=== PATIENT | male | born 1975 | race African-American/Black ===

== ENCOUNTER 2022-05-14 11:12 | Inpatient (IN) ==
[2022-05-14] MEDS ORDERED: FUROSEMIDE 40 MG/4 ML VIAL IV STA (11:40)
[2022-05-14 12:10] LABS: Basophils % 0.4 % (0.0-0.8); Eosinophils # 0.1 10*3/uL (0.0-0.87); Eosinophils % 1.3 % (0.00-10.9); Hematocrit 25.7 VOL% (42.0-52.0); Immature Granulocytes % 4.4 %; Immature Granulocytes Absolute 0.23 #; Lymphocytes # 1.3 10*3/uL (1.4-4.0); Lymphocytes % 24.6 % (21.2-54.2); Mean Corpuscular HGB Conc 31.1 GM/DL (32-36); Mean Corpuscular Volume 95.9 FL (87-102); Monocytes # 0.4 10*3/uL (0.11-0.8); Monocytes % 8.4 % (1.7-12.7); NRBC # 0.31 10*3/uL; Neutrophils % 60.9 % (38.7-73.9); Platelet Count 95 T/CUMM (130-400); Red Blood Count 2.68 MC/CUMM (3.8-5.5); Red Cell Distribution Width 19.8 % (9.3-17.3); White Blood Count 5.3 T/CUMM (4-12)
[2022-05-14 12:35] LABS: Hypochromia Slight; Platelet Estimate Decreased; Polychromasia Slight
[2022-05-14 12:36] LABS: Albumin 2.4 G/DL (3.4-5.0); Bilirubin,Total 0.8 MG/DL (0.20-1.00); Calcium 8.6 MG/DL (8.5-10.1); Osmolality,Calculated 283.1 MOS/KG (273-304); Potassium 3.7 MMOL/L (3.5-5.1); Total Protein 9.4 G/DL (6.4-8.2)
[2022-05-14] MEDS ORDERED: DILTIAZEM 25 MG/5 ML VIAL IV ONE (15:27)
[2022-05-14] MEDS ORDERED: DILTIAZEM 50 MG/10 ML VIAL IV STA (15:33)
[2022-05-14] MEDS ORDERED: DILTIAZEM 100 MG VIAL.ADD IV ONE ×2 (15:35→15:36)
[2022-05-14] MEDS: DILTIAZEM INJ 100 MG in SODIUM CHLORIDE 0.9% 100 ML IV SCH (15:40)
[2022-05-14] MEDS ORDERED: SODIUM CHLORIDE 0.9% 500 ML IV STA (16:23)
[2022-05-14] MEDS ORDERED: METOPROLOL TARTRATE 5 MG/5 ML VIAL IV STA (16:35)
[2022-05-14] MEDS ORDERED: DOCUSATE SODIUM 100 MG CAPSULE PO PRN (17:46)
[2022-05-14] MEDS ORDERED: ALBUTEROL/IPRATROPIUM 3 ML NEB RESP TX PRN (17:46)
[2022-05-14] MEDS ORDERED: ACETAMINOPHEN 325 MG TABLET PO PRN (17:46)
[2022-05-14] MEDS ORDERED: MORPHINE 2 MG/1 ML SYRINGE IV PRN (17:46)
[2022-05-14] MEDS ORDERED: ONDANSETRON 4 MG/2 ML VIAL IV PRN (17:46)
[2022-05-14] MEDS ORDERED: hydrALAZINE 20 MG/1 ML VIAL IV PRN (17:46)
[2022-05-14] MEDS ORDERED: MELATONIN 3 MG TABLET PO PRN (18:04)
[2022-05-14] MEDS ORDERED: SODIUM CHLORIDE 0.9% 1,000 ML IV PRN (19:16)
[2022-05-14 20:09] LABS: % Iron Saturation 44.3 % (18-50)
[2022-05-14 20:10] LABS: Thyroid Stimulating Hormone 3.23 uIU/ml (0.358-3.74)
[2022-05-14] MEDS: MONTELUKAST 10 MG TABLET PO SCH (21:27)
[2022-05-14] MEDS: ENOXAPARIN 40 MG/0.4 ML SYRINGE SUBCUT SCH (21:27)
[2022-05-15] MEDS ORDERED: METOPROLOL TARTRATE 5 MG/5 ML VIAL IV ONE ×2 (02:00→04:25)
[2022-05-15] MEDS ORDERED: POTASSIUM CHLORIDE RIDER 10 MEQ/100 ML PREMIX IV ONE (03:15)
[2022-05-15] MEDS ORDERED: POTASSIUM CHLORIDE 20 MEQ TABLET PO ONE (03:15)
[2022-05-15 05:29] LABS: Basophils % 0.5 % (0.0-0.8); Eosinophils % 0.7 % (0.00-10.9); Hematocrit 28.2 VOL% (42.0-52.0); Hemoglobin 8.5 GM/DL (14.0-18.0); Immature Granulocytes % 3.8 %; Immature Granulocytes Absolute 0.21 #; Lymphocytes # 1.5 10*3/uL (1.4-4.0); Lymphocytes % 27.3 % (21.2-54.2); Mean Corpuscular HGB Conc 30.1 GM/DL (32-36); Mean Corpuscular Volume 96.9 FL (87-102); Mean Platelet Volume 11.8 FL (9.6-12.0); Monocytes # 0.4 10*3/uL (0.11-0.8); Monocytes % 7.8 % (1.7-12.7); NRBC # 0.35 10*3/uL; Neutrophils % 59.9 % (38.7-73.9); Platelet Count 101 T/CUMM (130-400); Red Blood Count 2.91 MC/CUMM (3.8-5.5); White Blood Count 5.5 T/CUMM (4-12)
[2022-05-15 05:35] LABS: Amorphous Crystals,Urine Occasional /HPF (Few); Bilirubin,Urine Small mg/dL (Negative); Glucose,Urine (UA) Negative (Negative); Hyaline Casts,Urine 8 /LPF (0-3); Ketones,Urine Negative (Negative); Mucus,Urine Many /LPF (Occasional); Nitrite,Urine Negative (Negative); Protein,Urine 100 mg/dL (Negative); RBC,Urine 1 /HPF (0-4); Squamous Epithelial Cell,Urine Occasional /HPF (0-10); Urine Appearance Clear (Clear); Urine Color Yellow (Yellow); Urine Specific Gravity >= 1.030 (1.001-1.035); Urine pH 5.5 (4.5-8.0)
[2022-05-15 05:36] LABS: Blood, Urine Negative (Negative)
[2022-05-15 05:45] LABS: Calcium 8.4 MG/DL (8.5-10.1); Osmolality,Calculated 278.8 MOS/KG (273-304); Potassium 4.5 MMOL/L (3.5-5.1)
[2022-05-15 07:13] LABS: Barbiturates Screen,Urine Negative (Negative); Benzodiazepines Screen,Urine Negative (Negative); Cannabinoid Screen,Urine Negative (Negative); Opiate Screen,Urine Negative (Negative); Phencyclidine Screen,Urine Negative (Negative)
[2022-05-15] MEDS ORDERED: PANTOPRAZOLE 40 MG TABLET PO SCH (09:00)
[2022-05-15] MEDS ORDERED: METOPROLOL TARTRATE 50 MG TABLET PO SCH ×2 (09:00→21:00)
[2022-05-15] MEDS: DILTIAZEM CD 120 MG CAPSULE PO SCH ×2 (09:04→21:56)
[2022-05-15] MEDS: ASCORBIC ACID 500 MG TABLET PO SCH (09:04)
[2022-05-15] MEDS: FUROSEMIDE 40 MG/4 ML VIAL IV SCH (09:05)
[2022-05-15] MEDS: DILTIAZEM INJ 100 MG in SODIUM CHLORIDE 0.9% 100 ML IV SCH (17:04)
[2022-05-15] MEDS: ENOXAPARIN 40 MG/0.4 ML SYRINGE SUBCUT SCH (21:56)
[2022-05-15] MEDS: MONTELUKAST 10 MG TABLET PO SCH (21:59)
[2022-05-16] MEDS ORDERED: NOREPINEPHRINE 4 MG/4 ML VIAL IV ONE (01:44)
[2022-05-16] MEDS ORDERED: DEXTROSE 50% 25 GM/50 ML SYRINGE IV ONE ×5 (01:51→18:35)
[2022-05-16] MEDS ORDERED: ETOMIDATE 20 MG/10 ML VIAL IV ONE ×2 (01:53→02:03)
[2022-05-16] MEDS ORDERED: ROCURONIUM 100 MG/10 ML VIAL IV ONE ×2 (01:53→02:04)
[2022-05-16] MEDS: NOREPINEPHRINE 8 MG in SODIUM CHLORIDE 0.9% 242 ML IV PRN ×2 (01:55→03:38)
[2022-05-16] MEDS ORDERED: EPINEPHrine 1 MG/10 ML SYRINGE IV ONE (02:04)
[2022-05-16] MEDS ORDERED: MIDAZOLAM DRIP 100 MG/100 ML PREMIX IV PRN (02:16)
[2022-05-16 02:43] LABS: ABG Base Excess -26.8 MMOL/L (-2.5-2.5); ABG HCO3 5.4 MMOL/L (20-26); ABG Oxygen Saturation 91.9 % (95-100); ABG PCO2 41.6 MM HG (35-48); ABG TCO2 6.7 MMOL/L (23-27)
[2022-05-16 02:46] LABS: ABG PH 6.772 (7.35-7.45)
[2022-05-16] MEDS ORDERED: SODIUM BICARBONATE 50 MEQ/50 ML VIAL IV ONE ×6 (02:47→21:08)
[2022-05-16] MEDS ORDERED: SODIUM CHLORIDE 0.9% 1,000 ML IV ONE ×2 (02:49→07:52)
[2022-05-16] MEDS ORDERED: SODIUM BICARB INJ 150 MEQ in STERILE WATER INJ 850 ML IV SCH (03:00)
[2022-05-16 03:01] LABS: Hyaline Casts,Urine 9 /LPF (0-3); Mucus,Urine Occasional /LPF (Occasional); RBC,Urine 19 /HPF (0-4); Squamous Epithelial Cell,Urine Occasional /HPF (0-10)
[2022-05-16 03:02] LABS: Bilirubin,Urine Negative (Negative); Blood, Urine Large mg/dL (Negative); Glucose,Urine (UA) Negative (Negative); Ketones,Urine Negative (Negative); Nitrite,Urine Negative (Negative); Protein,Urine 30 mg/dL (Negative); Urine Appearance SL CLOUDY (Clear); Urine Color Yellow (Yellow); Urine Urobilinogen 0.2 eU/dL (<2.0)
[2022-05-16 03:04] LABS: Alanine Aminotransferase 437 U/L (16-61); Albumin 2.2 G/DL (3.4-5.0); Alkaline Phosphatase 93 U/L (45-117); Aspartate Amino Transferase 562 U/L (0-37); Blood Urea Nitrogen 39 MG/DL (7-18); Calcium 7.6 MG/DL (8.5-10.1); Carbon Dioxide 7 MMOL/L (21-32); Chloride 104 MMOL/L (98-107); Glucose 87 MG/DL (74-106); Osmolality,Calculated 282.7 MOS/KG (273-304); Sodium 138 MMOL/L (136-145); Total Protein 8.8 G/DL (6.4-8.2)
[2022-05-16 04:03] LABS: Basophils % 0.3 % (0.0-0.8); Eosinophils % 0.3 % (0.00-10.9); Hematocrit 29.5 VOL% (42.0-52.0); Hemoglobin 7.8 GM/DL (14.0-18.0); Immature Granulocytes % 5.8 %; Immature Granulocytes Absolute 0.52 #; Lymphocytes # 2.4 10*3/uL (1.4-4.0); Lymphocytes % 26.8 % (21.2-54.2); Mean Corpuscular HGB Conc 26.4 GM/DL (32-36); Mean Corpuscular Volume 110.9 FL (87-102); Mean Platelet Volume 11.6 FL (9.6-12.0); Monocytes # 0.7 10*3/uL (0.11-0.8); Monocytes % 7.6 % (1.7-12.7); NRBC # 0.46 10*3/uL; Neutrophils % 59.2 % (38.7-73.9); Platelet Count 83 T/CUMM (130-400); Red Blood Count 2.66 MC/CUMM (3.8-5.5); White Blood Count 8.9 T/CUMM (4-12)
[2022-05-16] MEDS ORDERED: VASOPRESSIN 100 UNITS in SODIUM CHLORIDE 0.9% 95 ML IV PRN (04:04)
[2022-05-16 04:35] LABS: Band Neutrophils 2 % (0-10); Lymphocytes 26 % (20-55); Metamyelocytes 1 %; Myelocytes 5 %; Nucleated Red Blood Cells 4 /100 WBC (0-5); Platelet Estimate Decreased; Total Cells Counted 100
[2022-05-16 04:36] LABS: Anisocytosis Slight
[2022-05-16] MEDS ORDERED: EPINEPHrine 1 MG/ML VIAL ONE (04:50)
[2022-05-16] MEDS ORDERED: CALCIUM CHLORIDE 1,000 MG/10 ML SYRINGE IV ONE ×3 (05:05→21:08)
[2022-05-16] MEDS: NOREPINEPHRINE 16 MG in SODIUM CHLORIDE 0.9% 234 ML IV PRN ×6 (05:22→22:14)
[2022-05-16] MEDS ORDERED: SODIUM CHLORIDE 0.9% 2,000 ML IV ONE (05:28)
[2022-05-16 06:15] LABS: ABG Base Excess -24.6 MMOL/L (-2.5-2.5); ABG HCO3 6.8 MMOL/L (20-26); ABG Oxygen Saturation 96.3 % (95-100); ABG PCO2 47.9 MM HG (35-48); ABG PH 6.838 (7.35-7.45); ABG TCO2 8.6 MMOL/L (23-27)
[2022-05-16] MEDS: SODIUM BICARB INJ 150 MEQ in STERILE WATER INJ 1,000 ML IV SCH (07:30)
[2022-05-16] MEDS ORDERED: HEPARIN DRIP 25,000 UNITS/500 ML PREMIX IV SCH (08:30)
[2022-05-16] MEDS ORDERED: PANTOPRAZOLE 40 MG VIAL IV SCH (09:00)
[2022-05-16 10:20] LABS: Arterial Base Excess iSTAT -22 MMOL/L (-2.5-2.5); Arterial Bicarbonate iSTAT 9.3 MMOL/L (20-26); Arterial O2 Saturation iSTAT 91 % (95-100); Arterial PCO2 iSTAT 45 MM HG (35-48); Arterial PO2 iSTAT 100 MM HG (80-95); Arterial Total CO2 iSTAT 11 MMO/L (23-27); Arterial pH iSTAT 6.922 (7.35-7.45)
[2022-05-16] MEDS: FUROSEMIDE 40 MG/4 ML VIAL IV SCH (11:15)
[2022-05-16] MEDS: DILTIAZEM CD 120 MG CAPSULE PO SCH ×2 (11:15→20:36)
[2022-05-16] MEDS: ASCORBIC ACID 500 MG TABLET PO SCH (11:17)
[2022-05-16] MEDS ORDERED: SODIUM CHLORIDE 0.9% 1,000 ML IV PRN (12:16)
[2022-05-16] MEDS: HYDROCORTISONE 100 MG VIAL IV SCH ×2 (12:37→18:46)
[2022-05-16 12:50] LABS: Calcium 8.5 MG/DL (8.5-10.1); Osmolality,Calculated 289.3 MOS/KG (273-304)
[2022-05-16 13:03] LABS: Potassium 6.2 MMOL/L (3.5-5.1)
[2022-05-16] MEDS ORDERED: SODIUM BICARBONATE 50 MEQ/50 ML SYRINGE IV ONE ×3 (13:14→17:19)
[2022-05-16 18:31] LABS: Hematocrit 32.5 VOL% (42.0-52.0); Hemoglobin 8.6 GM/DL (14.0-18.0)
[2022-05-16 19:11] VITALS: BP 71/57
[2022-05-16 20:19] LABS: Folate 12.14 NG/ML (5.38-24.0)
[2022-05-16 20:37] LABS: ABG HCO3 4.9 MMOL/L (20-26); ABG Oxygen Saturation 82.7 % (95-100); ABG PCO2 36.5 MM HG (35-48); ABG PO2 77.7 MM HG (80-95); ABG TCO2 5.7 MMOL/L (23-27)
[2022-05-16 20:59] LABS: Calcium 7.8 MG/DL (8.5-10.1); High Sensitive Troponin I* 67.7 ng/L (0-78); Osmolality,Calculated 289.3 MOS/KG (273-304)
[2022-05-16 21:02] LABS: Potassium 6.3 MMOL/L (3.5-5.1)
[2022-05-16 21:04] LABS: Basophils # 0.1 10*3/uL (0.0-0.2); Basophils % 0.5 % (0.0-0.8); Eosinophils # 0.1 10*3/uL (0.0-0.87); Eosinophils % 0.7 % (0.00-10.9); Hematocrit 31.9 VOL% (42.0-52.0); Hemoglobin 8.1 GM/DL (14.0-18.0); Immature Granulocytes % 7.3 %; Immature Granulocytes Absolute 0.69 #; Lymphocytes # 3.6 10*3/uL (1.4-4.0); Lymphocytes % 38.2 % (21.2-54.2); Mean Corpuscular HGB Conc 25.4 GM/DL (32-36); Mean Corpuscular Volume 114.7 FL (87-102); Monocytes # 0.4 10*3/uL (0.11-0.8); Monocytes % 4.7 % (1.7-12.7); NRBC # 1.01 10*3/uL; Neutrophils % 48.6 % (38.7-73.9); Platelet Count 57 T/CUMM (130-400); Red Blood Count 2.78 MC/CUMM (3.8-5.5); Red Cell Distribution Width 21.4 % (9.3-17.3); White Blood Count 9.5 T/CUMM (4-12)
[2022-05-16 21:21] LABS: Band Neutrophils 2 % (0-10); Eosinophils 1 % (0-10); Lymphocytes 40 % (20-55); Metamyelocytes 2 %; Nucleated Red Blood Cells 6 /100 WBC (0-5); Total Cells Counted 100
[2022-05-16 21:23] LABS: Anisocytosis Slight; Atypical Lymphocytes Few; Platelet Estimate Decreased
[2022-05-16] MEDS ORDERED: MEROPENEM 500 MG in SODIUM CHLORIDE 0.9% 100 ML IV SCH (21:30)
[2022-05-16] MEDS ORDERED: MEROPENEM 2,000 MG in SODIUM CHLORIDE 0.9% 100 ML IV SCH (21:30)
[2022-05-16] MEDS ORDERED: DEXTROSE 5% 1,000 ML IV SCH (21:30)
[2022-05-16] MEDS ORDERED: DEXTROSE 50% 25 GM/50 ML SYRINGE IV PRN (23:39)
[2022-05-17] MEDS: HYDROCORTISONE 100 MG VIAL IV SCH ×2 (00:02→06:18)
[2022-05-17] MEDS: NOREPINEPHRINE 16 MG in SODIUM CHLORIDE 0.9% 234 ML IV PRN (01:44)
[2022-05-17] MEDS: SODIUM BICARB INJ 150 MEQ in STERILE WATER INJ 1,000 ML IV SCH (03:02)
[2022-05-17 03:07] LABS: ABG Base Excess -28.1 MMOL/L (-2.5-2.5); ABG HCO3 4.8 MMOL/L (20-26); ABG Oxygen Saturation 87.6 % (95-100); ABG PCO2 31.1 MM HG (35-48)
[2022-05-17 03:10] LABS: ABG PH 6.778 (7.35-7.45)
[2022-05-17 03:14] LABS: Immature Granulocytes Absolute 0.77 #; Mean Corpuscular Volume 115.1 FL (87-102)
[2022-05-17 03:35] LABS: Basophils # 0.1 10*3/uL (0.0-0.2); Basophils % 0.5 % (0.0-0.8); Eosinophils # 0.1 10*3/uL (0.0-0.87); Eosinophils % 0.8 % (0.00-10.9); Hematocrit 29.7 VOL% (42.0-52.0); Immature Granulocytes % 7.9 %; Lymphocytes # 3.7 10*3/uL (1.4-4.0); Lymphocytes % 38.5 % (21.2-54.2); Mean Corpuscular HGB Conc 25.6 GM/DL (32-36); Mean Platelet Volume 11.2 FL (9.6-12.0); Monocytes # 0.7 10*3/uL (0.11-0.8); Monocytes % 7.6 % (1.7-12.7); Neutrophils % 44.7 % (38.7-73.9); Red Blood Count 2.58 MC/CUMM (3.8-5.5); White Blood Count 9.7 T/CUMM (4-12)
[2022-05-17 03:39] LABS: Hemoglobin 7.6 GM/DL (14.0-18.0); Platelet Count 42 T/CUMM (130-400)
[2022-05-17 03:51] LABS: Eosinophils 2 % (0-10); Lymphocytes 31 % (20-55); Nucleated Red Blood Cells 13 /100 WBC (0-5); Platelet Estimate Decreased
[2022-05-17 03:52] LABS: Hypochromia 1+; Macrocytosis Slight; Total Cells Counted 100
[2022-05-17] MEDS ORDERED: SODIUM BICARBONATE 50 MEQ/50 ML SYRINGE IV ONE ×2 (04:20→04:55)
[2022-05-17] MEDS ORDERED: CALCIUM CHLORIDE 1,000 MG/10 ML SYRINGE IV ONE ×2 (04:20→04:56)
[2022-05-17] MEDS ORDERED: EPINEPHrine 1 MG/10 ML SYRINGE IV ONE ×2 (04:22→04:55)
[2022-05-17] MEDS ORDERED: EPINEPHrine 1 MG/ML VIAL IV ONE (04:58)
[2022-05-17] MEDS ORDERED: ATROPINE 1 MG/10 ML SYRINGE IV ONE (05:04)
== END 2022-05-17 05:32 | disposition expired | DRG 201 ==
LOC: N.ED 11:12 → SUATTDRO 17:46 → N.TELEN 17:46 → N.CC 05-16 02:38
PROVIDERS: ADMIT Hospitalist; ATTEND Internal Medicine